=== PATIENT | female | born 1970 | race Caucasian/White ===

== ENCOUNTER 2016-08-03 18:53 | Emergency (ER) | payer BC, OTHER ==
[2016-08-03] MEDS ORDERED: Sodium Chloride 0.9% 1,000 ML IV ONE (20:33)
[2016-08-03] MEDS ORDERED: Ondansetron 4 MG/2 ML SDV IV ONE (20:34)
[2016-08-03] MEDS ORDERED: HYDROmorphone 1 MG/ML Syringe IVPUSH ONE ×2 (20:35→22:41)
--- NOTE | 2016-08-03 20:42 | EDM.PDOC ---
ED HPI GI/ABDOMINAL - General Chief Complaint: Abdominal Pain Stated Complaint: BACK AND FRONTAL PAIN Time Seen by Provider: 08/03/16 20:00 Source of Information: Reports: Patient History Limitations: Reports: No limitations - History of Present Illness INITIAL COMMENTS - FREE TEXT/NARRATIVE: c/o lower abdominal pain stabbing type radiates to back, started 2-3 days ago, seems to be worsening, started more lower and now moving upward, not affected by eating, bowels regular, no urinary complaints. Rates 5/10 tearful. no nausea. Last BM this am, LMP end of june. Tubal. Timing/Duration: Reports: Day(s): Location: generalized Quality: Reports: fullness, stabbing Severity: moderate Worsens with: Reports: lying down Associated Symptoms (-Female): Reports: fever/chills. Denies: constipation, diarrhea, loss of appetite, nausea/vomiting - Related Data Allergies/ADRs: Allergies Allergy/AdvReac Type Severity Reaction Status Date / Time No Known Allergies Allergy Verified 08/03/16 19:44 Home Meds: Home Meds . 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 Denies: decreased appetite HEENT: Reports: No symptoms Respiratory: Reports: No Symptoms Cardiovascular: Reports: Dyspnea on exertion GI/Abdominal: Reports: Abdominal pain, Distension. Denies: Decreased appetite, Flatus, Mucous in stool, Nausea, Stool incontinence : Reports: no symptoms Musculoskeletal: Reports: back pain (lower , abdominal radiates around low back) Skin: Reports: no symptoms Neurological: Reports: No Symptoms, Headache (tonight, hx migraines in past) ED EXAM, GI/ABD - Physical Exam Exam: See Below Exam Limited By: No limitations General Appearance: alert, moderate distress Eyes: bilateral: EOMI Ears: normal external exam, normal TMs Nose: normal inspection Throat/Mouth: Normal inspection, Normal lips, Normal voice Head: atraumatic, normocephalic Neck: normal inspection, non-tender, full range of motion Respiratory/Chest: no respiratory distress, lungs clear, normal breath sounds Cardiovascular: normal peripheral pulses, regular rate, rhythm, no edema GI/Abdominal: normal bowel sounds, soft, hypoactive bowel sounds, tenderness ( generalized) Back Exam: paraspinal tenderness (low lumbar, sacral). No: CVA tenderness (L), CVA tenderness (R) Neurological: alert, oriented, normal cognition Psychiatric: tearful Skin Exam: Warm, Dry, Intact, Normal color Course - Vital Signs Last Recorded V/S: Last Vital Signs Temp 96.8 F 08/03/16 23:22 Pulse 99 08/03/16 23:22 Resp 17 08/03/16 23:22 BP 123/81 08/03/16 23:22 Pulse Ox 100 08/03/16 23:22 - Orders/Labs/Meds Labs: Laboratory Tests 08/03/16 08/03/16 08/03/16 Range/Units 19:40 19:40 20:40 WBC 10.1 H (5.0-10.0) 10^3/uL RBC 3.61 L (4.2-5.4) 10^6/uL Hgb 11.6 L (12.0-16.0) g/dL Hct 33.7 L (37.0-47.0) % MCV 93.4 (80-100) fL MCH 32.1 (27.0-34.0) pg MCHC 34.4 (33.0-35.0) g/dL Plt Count 259 (150-450) 10^3/uL Neut % (Auto) 64.3 (42.2-75.2) % Lymph % (Auto) 23.7 (20.5-50.1) % [place] % (Auto) 11.1 H (2-8) % Eos % (Auto) 0.7 L (1.0-3.0) % Baso % (Auto) 0.2 (0.0-1.0) % Sodium (135-145) mmol/L Potassium (3.6-5.0) mmol/L Chloride (101-111) mmol/L Carbon Dioxide (21.0-31.0) mmol/L Anion Gap BUN (7-18) mg/dL Creatinine (0.6-1.3) mg/dL Est Cr Clr Drug Dosing mL/min Estimated GFR (MDRD) BUN/Creatinine Ratio Glucose (74-105) mg/dL Calcium (8.4-10.2) mg/dl Total Bilirubin (0.2-1.0) mg/dL AST (10-42) IU/L ALT (10-60) IU/L Alkaline Phosphatase (42-121) IU/L C-Reactive Protein (0.0-1.3) mg/dL Total Protein (6.7-8.2) g/dl Albumin (3.2-5.5) g/dl Globulin Albumin/Globulin Ratio Amylase (28-100) U/L Lipase (22-51) U/L Urine Color Yellow (YELLOW) Urine Appearance Cloudy (CLEAR) Urine pH 5.5 (5.0-9.0) Ur Specific [place] 1.020 (1.005-1.030) Urine Protein Negative (NEGATIVE) Urine Glucose (UA) Negative (NEGATIVE) Urine Ketones 15 H (NEGATIVE) Urine Occult Blood Negative (NEGATIVE) Urine Nitrite Negative (NEGATIVE) Urine Bilirubin Negative (NEGATIVE) Urine Urobilinogen 0.2 (0.2-1.0) mg/dL Ur Leukocyte Esterase Small H (NEGATIVE) Urine RBC 0-5 /HPF Urine WBC 20-30 H (0-5/HPF) /HPF Ur Epithelial Cells Many H /HPF Urine Bacteria Many H (0-FEW/HPF) /HPF Urine Mucus Moderate H /LPF Urine HCG, Qual Negative 08/03/16 08/03/16 Range/Units 20:40 20:40 WBC (5.0-10.0) 10^3/uL RBC (4.2-5.4) 10^6/uL Hgb (12.0-16.0) g/dL Hct (37.0-47.0) % MCV (80-100) fL MCH (27.0-34.0) pg MCHC (33.0-35.0) g/dL Plt Count (150-450) 10^3/uL Neut % (Auto) (42.2-75.2) % Lymph % (Auto) (20.5-50.1) % [place] % (Auto) (2-8) % Eos % (Auto) (1.0-3.0) % Baso % (Auto) (0.0-1.0) % Sodium 136 (135-145) mmol/L Potassium 3.5 L (3.6-5.0) mmol/L Chloride 101 (101-111) mmol/L Carbon Dioxide 26.0 (21.0-31.0) mmol/L Anion Gap 12.5 BUN 11 (7-18) mg/dL Creatinine 0.6 (0.6-1.3) mg/dL Est Cr Clr Drug Dosing 85.94 mL/min Estimated GFR (MDRD) > 60 BUN/Creatinine Ratio 18.33 Glucose 95 (74-105) mg/dL Calcium 9.4 (8.4-10.2) mg/dl Total Bilirubin 0.5 (0.2-1.0) mg/dL AST 41 (10-42) IU/L ALT 45 (10-60) IU/L Alkaline Phosphatase 59 (42-121) IU/L C-Reactive Protein 9.5 H (0.0-1.3) mg/dL Total Protein 7.1 (6.7-8.2) g/dl Albumin 3.9 (3.2-5.5) g/dl Globulin 3.2 Albumin/Globulin Ratio 1.22 Amylase 44 (28-100) U/L Lipase 29 (22-51) U/L Urine Color (YELLOW) Urine Appearance (CLEAR) Urine pH (5.0-9.0) Ur Specific [place] (1.005-1.030) Urine Protein (NEGATIVE) Urine Glucose (UA) (NEGATIVE) Urine Ketones (NEGATIVE) Urine Occult Blood (NEGATIVE) Urine Nitrite (NEGATIVE) Urine Bilirubin (NEGATIVE) Urine Urobilinogen (0.2-1.0) mg/dL Ur Leukocyte Esterase (NEGATIVE) Urine RBC /HPF Urine WBC (0-5/HPF) /HPF Ur Epithelial Cells /HPF Urine Bacteria (0-FEW/HPF) /HPF Urine Mucus /LPF Urine HCG, Qual Meds: Medications Discontinued Medications Generic Name Dose Route Start Last Admin Trade Name Freq PRN Reason Stop Dose Admin Hydrocodone Bitart/Acetaminophen Confirm 08/03/16 23:12 08/03/16 23:23 [place] 325-10 Mg Administered 08/03/16 23:13 Not Given Dose 2 tab .ROUTE .STK-MED ONE Ciprofloxacin 500 mg 08/03/16 22:59 08/03/16 23:16 Ciprofloxacin Hcl PO 08/03/16 23:00 500 mg ONETIME ONE Administration Hydromorphone HCl 1 mg 08/03/16 20:35 08/03/16 20:51 Dilaudid IVPUSH 08/03/16 20:36 1 mg ONETIME ONE Administration Hydromorphone HCl 1 mg 08/03/16 22:41 08/03/16 22:54 Dilaudid IVPUSH 08/03/16 22:42 1 mg ONETIME ONE Administration Sodium Chloride 1,000 mls @ 999 mls/hr 08/03/16 20:33 08/03/16 20:47 Normal Saline IV 08/03/16 21:33 999 mls/hr .BOLUS ONE Administration Iopamidol 75 ml 08/03/16 22:03 08/03/16 22:59 Isovue-300 (61%) IVPUSH 08/03/16 22:04 75 ml ONETIME ONE Administration Metoclopramide HCl 10 mg 08/03/16 22:44 08/03/16 22:54 Reglan IVPUSH 08/03/16 22:45 10 mg ONETIME ONE Administration Ondansetron HCl 4 mg 08/03/16 20:34 08/03/16 20:49 Zofran IV 08/03/16 20:35 4 mg ONETIME ONE Administration Ondansetron HCl Confirm 08/03/16 23:13 08/03/16 23:23 Zofran Odt Administered 08/03/16 23:14 Not Given Dose 8 mg .ROUTE .[facility] ONE - Radiology Interpretation Free Text/Narrative:: CT abdomen pelvis: cholelithiasis, gastroenteritis, Left adenexal cyst. Normal appendix - Re-Assessments/Exams Free Text/Narrative Re-Assessment/Exam: 08/04/16 03:49 Pain and nausea improved with medications, tolerating few ice chips. findings discussed with patient and spouse. Departure - Departure Time of Disposition: 23:20 Disposition: Home, Self-Care 01 Clinical Impression: Gastroenteritis Abdominal pain Qualifiers: Abdominal location: generalized Qualified Code(s): R10.84 - Generalized abdominal pain UTI (urinary tract infection) Qualifiers: Urinary tract infection type: acute cystitis Hematuria presence: without hematuria Qualified Code(s): N30.00 - Acute cystitis without hematuria Instructions: Abdominal Pain, Adult, [id number] Forms: ED Department Discharge Additional Instructions: cipro 500mg one twice daily for one week increase fluids low fat diet zofran odt 4mg every 6 hours as needed for nausea hydrocodone 10/325 one every 6 hours as needed for pain #10
[2016-08-03 21:11] LABS: CHLORIDE,CL 101 mmol/L (101-111); SODIUM,NA 136 mmol/L (135-145)
[2016-08-03] MEDS ORDERED: Iopamidol 612 MG/ML 75 ML Bottle IVPUSH ONE (22:03)
[2016-08-03] MEDS ORDERED: Metoclopramide 10 MG/2 ML SDV IVPUSH ONE (22:44)
[2016-08-03] MEDS ORDERED: Ciprofloxacin 500 MG Tab PO ONE (22:59)
[2016-08-03] MEDS ORDERED: Acetaminophen/HYDROcodone 325-10 MG Tab ONE (23:12)
[2016-08-03] MEDS ORDERED: Ondansetron 4 MG Tab.DIS ONE (23:13)
[2016-08-03 23:29] VITALS: BP 123/81
== END 2016-08-03 23:22 | disposition home or self-care (01) ==
LOC: DL.ED 18:53
DX: K52.9 Noninfective gastroenteritis and colitis, unspecified (principal); N30.00 Acute cystitis without hematuria; K80.20 Calculus of gallbladder without cholecystitis without obstruction; N83.8 Other noninflammatory disorders of ovary, fallopian tube and broad ligament; Z98.51 Tubal ligation status
CPT/HCPCS: 36415; 74177; 80053; 81001; 81025; 82150; 83690; 85025; 86140; 96365; 96375; 99284; A9270; J1170; J2405; J2765; J7030; Q9967

== ENCOUNTER 2018-05-29 08:14 | Emergency (ER) | payer BC, OTHER ==
[2018-05-29 08:28] VITALS: BP 142/78
[2018-05-29] MEDS ORDERED: Aspirin 81 MG Tab.Chew PO ONE (08:37)
[2018-05-29] MEDS ORDERED: Sodium Chloride 0.9% 10 ML Syringe FLUSH PRN (08:37)
--- NOTE | 2018-05-29 08:37 | EDM.PDOC ---
ED HPI GENERAL MEDICAL PROBLEM - General Chief Complaint: Chest Pain Stated Complaint: CHEST PAIN [id number] Time Seen by Provider: 05/29/18 08:37 Source of Information: Reports: Patient, RN, RN Notes Reviewed History Limitations: Reports: No Limitations - History of Present Illness INITIAL COMMENTS - FREE TEXT/NARRATIVE: Pt presents to ER from home by POV with c/o onset of left sided chest pain yesterday while doing light house work. The pain has come and gone several times randomly without any particular relation to activity or any other associated cause. She reports some tingling in the left arm as well. Denies shortness of breath, nausea, radiating pain, lightheadedness, palpitations, rapid HR, syncope, edema, or orthopnea. She denies any Hx of heart disease. No family Hx of CAD or [place]. Currently she states the pain is "barely perceivable" and rates it as a 3/10. Onset Date: 05/28/18 Duration: Constant, Intermittent, Waxing/Waning Location: Reports: Chest Quality: Reports: Ache Severity: Mild Improves with: Reports: None Worsens with: Reports: None Associated Symptoms: Reports: No Other Symptoms - Related Data Allergies Allergy/AdvReac Type Severity Reaction Status Date / Time No Known Allergies Allergy Verified 05/29/18 08:21 Home Meds: Home Meds . 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 (See Below) Other CLAIMS ADJUSTER CROP History: Tubal Musculoskeletal History: Reports: None Neurological History: Reports: None Psychiatric History: Reports: None Endocrine/Metabolic History: Reports: None Hematologic History: Reports: None Immunologic History: Reports: None Oncologic (Cancer) History: Reports: None Dermatologic History: Reports: None - Past Surgical History Female Surgical History: Reports: Tubal Ligation Social & Family History - Family History Family Medical History: Noncontributory - Tobacco Use Smoking Status *Q: Never Smoker Second Hand Smoke Exposure: Yes - Caffeine Use Caffeine Use: Reports: Coffee, Soda Other Caffeine Use: Soda only a couple times per week - Recreational Drug Use Recreational Drug Use: No - Living Situation & Occupation Living situation: Reports: , with Family ED ROS GENERAL - Review of Systems Review Of Systems: ROS reveals no pertinent complaints other than HPI. ED EXAM, GENERAL - Physical Exam Exam: See Below Exam Limited By: No Limitations General Appearance: Alert, WD/WN, No Apparent Distress, Anxious Eye Exam: Bilateral Eye: Normal Inspection Nose: Normal Inspection, Normal Mucosa, No Blood Throat/Mouth: Normal Inspection, Normal Lips, Normal Teeth, Normal Gums, Normal Oropharynx, Normal Voice, No Airway Compromise Head: Atraumatic, Normocephalic Neck: Normal Inspection, Supple, Non-Tender, Full Range of Motion Respiratory/Chest: No Respiratory Distress, Lungs Clear, Normal Breath Sounds, No Accessory Muscle Use, Chest Non-Tender Cardiovascular: Normal Peripheral Pulses, Regular Rate, Rhythm, No Edema, No Gallop, No JVD, No Murmur, No Rub GI/Abdominal: Normal Bowel Sounds, Soft, Non-Tender, No Distention Back Exam: Normal Inspection Extremities: Normal Inspection, Normal Range of Motion, Non-Tender, Normal Capillary Refill, No Pedal Edema Neurological: Alert, Oriented, CN II-XII Intact, Normal Cognition, Normal Gait, No Motor/Sensory Deficits Psychiatric: Anxious Skin Exam: Warm, Dry, Intact, Normal Color, No Rash EKG INTERPRETATION EKG Date: 05/29/18 Time: 08:19 Rhythm: NSR Rate (Beats/Min): 98 [place]: Normal P-Wave: Present QRS: Normal ST-T: Normal QT: Normal Comparison: NA - No Prior EKG EKG Interpretation Comments: No acute ischemic changes. Course - Vital Signs Last Recorded V/S: Last Vital Signs Temp 35.9 C 05/29/18 08:15 Pulse 109 H 05/29/18 08:15 Resp 16 05/29/18 08:15 BP 142/78 H 05/29/18 08:15 Pulse Ox 100 05/29/18 08:15 - Orders/Labs/Meds Orders: Active Orders 24 hr Category Date Time Status EKG 12 Lead [EKG Documentation Completion] [RC] STAT Care 05/29/18 08:38 Active Peripheral IV Care [RC] . DIRECTED Care 05/29/18 08:38 Active Sodium Chloride 0.9% [Saline Flush] Med 05/29/18 08:37 Active 10 ml FLUSH ASDIRECTED PRN Peripheral IV Insertion Adult [OM.PC] Stat Oth 05/29/18 08:38 Ordered Medication Orders Sodium Chloride (Saline Flush) 10 ml FLUSH ASDIRECTED PRN PRN Reason: Keep Vein Open Labs: Laboratory Tests 05/29/18 05/29/18 05/29/18 Range/Units 08:46 08:46 08:46 WBC 5.8 (5.0-10.0) 10^3/uL RBC 3.93 L (4.2-5.4) 10^6/uL Hgb 12.5 (12.0-16.0) g/dL Hct 36.0 L (37.0-47.0) % MCV 91.6 (80-100) fL MCH 31.8 (27.0-34.0) pg MCHC 34.7 (33.0-35.0) g/dL Plt Count 274 (150-450) 10^3/uL Neut % (Auto) 57.2 (42.2-75.2) % Lymph % (Auto) 31.5 (20.5-50.1) % [place] % (Auto) 7.8 (2-8) % Eos % (Auto) 3.3 H (1.0-3.0) % Baso % (Auto) 0.2 (0.0-1.0) % D-Dimer, Quantitative < 100 (0-400) ng/mL Sodium 136 (135-145) mmol/L Potassium 4.0 (3.6-5.0) mmol/L Chloride 104 (101-111) mmol/L Carbon Dioxide 21.0 (21.0-31.0) mmol/L Anion Gap 15.0 BUN 12 (7-18) mg/dL Creatinine 0.7 (0.6-1.3) mg/dL Est Cr Clr Drug Dosing 72.13 mL/min Estimated GFR (MDRD) > 60 BUN/Creatinine Ratio 17.14 Glucose 94 (74-105) mg/dL Calcium 9.0 (8.4-10.2) mg/dl Total Bilirubin 0.7 (0.2-1.0) mg/dL AST 31 (10-42) IU/L ALT 28 (10-60) IU/L Alkaline Phosphatase 60 (42-121) IU/L Troponin I < 0.02 (0.00-0.02) ng/ml Total Protein 7.1 (6.7-8.2) g/dl Albumin 3.8 (3.2-5.5) g/dl Globulin 3.3 Albumin/Globulin Ratio 1.15 Lipase 33 (22-51) U/L Urine Color (YELLOW) Urine Appearance (CLEAR) Urine pH (5.0-9.0) Ur Specific [place] (1.005-1.030) Urine Protein (NEGATIVE) Urine Glucose (UA) (NEGATIVE) Urine Ketones (NEGATIVE) Urine Occult Blood (NEGATIVE) Urine Nitrite (NEGATIVE) Urine Bilirubin (NEGATIVE) Urine Urobilinogen (0.2-1.0) mg/dL Ur Leukocyte Esterase (NEGATIVE) Urine RBC /HPF Urine WBC (0-5/HPF) /HPF Ur Epithelial Cells /HPF Urine Bacteria (0-FEW/HPF) /HPF Urine Mucus /LPF Urine HCG, Qual 05/29/18 05/29/18 Range/Units 08:55 08:55 WBC (5.0-10.0) 10^3/uL RBC (4.2-5.4) 10^6/uL Hgb (12.0-16.0) g/dL Hct (37.0-47.0) % MCV (80-100) fL MCH (27.0-34.0) pg MCHC (33.0-35.0) g/dL Plt Count (150-450) 10^3/uL Neut % (Auto) (42.2-75.2) % Lymph % (Auto) (20.5-50.1) % [place] % (Auto) (2-8) % Eos % (Auto) (1.0-3.0) % Baso % (Auto) (0.0-1.0) % D-Dimer, Quantitative (0-400) ng/mL Sodium (135-145) mmol/L Potassium (3.6-5.0) mmol/L Chloride (101-111) mmol/L Carbon Dioxide (21.0-31.0) mmol/L Anion Gap BUN (7-18) mg/dL Creatinine (0.6-1.3) mg/dL Est Cr Clr Drug Dosing mL/min Estimated GFR (MDRD) BUN/Creatinine Ratio Glucose (74-105) mg/dL Calcium (8.4-10.2) mg/dl Total Bilirubin (0.2-1.0) mg/dL AST (10-42) IU/L ALT (10-60) IU/L Alkaline Phosphatase (42-121) IU/L Troponin I (0.00-0.02) ng/ml Total Protein (6.7-8.2) g/dl Albumin (3.2-5.5) g/dl Globulin Albumin/Globulin Ratio Lipase (22-51) U/L Urine Color Yellow (YELLOW) Urine Appearance Clear (CLEAR) Urine pH 5.0 (5.0-9.0) Ur Specific [place] 1.015 (1.005-1.030) Urine Protein Negative (NEGATIVE) Urine Glucose (UA) Negative (NEGATIVE) Urine Ketones Negative (NEGATIVE) Urine Occult Blood Trace-intact H (NEGATIVE) Urine Nitrite Negative (NEGATIVE) Urine Bilirubin Negative (NEGATIVE) Urine Urobilinogen 0.2 (0.2-1.0) mg/dL Ur Leukocyte Esterase Negative (NEGATIVE) Urine RBC 0-5 /HPF Urine WBC Not seen (0-5/HPF) /HPF Ur Epithelial Cells Moderate H /HPF Urine Bacteria Moderate H (0-FEW/HPF) /HPF Urine Mucus Not seen /LPF Urine HCG, Qual Negative Meds: Medications Generic Name Dose Route Start Last Admin Trade Name Freq PRN Reason Stop Dose Admin Sodium Chloride 10 ml 05/29/18 08:37 Saline Flush FLUSH ASDIRECTED PRN Keep Vein Open Discontinued Medications Generic Name Dose Route Start Last Admin Trade Name Freq PRN Reason Stop Dose Admin Al Hydroxide/Mg Hydroxide 30 ml 05/29/18 09:28 05/29/18 09:36 Gi Cocktail PO 05/29/18 09:29 30 ml ONETIME ONE Administration Aspirin 324 mg 05/29/18 08:37 05/29/18 08:41 Aspirin PO 05/29/18 08:38 324 mg ONETIME ONE Administration Famotidine 20 mg 05/29/18 09:29 Pepcid IVPUSH 05/29/18 09:30 ONETIME ONE Famotidine 20 mg 05/29/18 09:31 05/29/18 09:36 Pepcid PO 05/29/18 09:32 20 mg ONETIME ONE Administration Famotidine Confirm 05/29/18 09:33 Pepcid Administered 05/29/18 09:34 Dose 20 mg .ROUTE .STK-MED ONE - Radiology Interpretation Free Text/Narrative:: [facility] Final Radiology Report Call: [phone] assistance Online chat: [email or web address] Name: ZORAN BAXTER Age: 47Years F Date: 05/29/2018 SSN: -- : 1970 Study: XR CHEST 1 VIEW Requesting Physician: WOLFGANG BARTHOLOMEW Images: 1 Addl Studies: Provided Clinical History: Contrast: Contrast Medium: Contrast Amount: Contrast Method: CONFIDENTIALITY STATEMENT This report is intended only for use by the referring physician, and only in accordance with law. If you received this in error, call [phone]. Page 1 of 1 EXAM: XR Chest, 1 View EXAM DATE/TIME: 05/29/2018 8:49 AM CLINICAL HISTORY: 47 years old, female; Signs and symptoms; Other: Chest pain TECHNIQUE: XR of the chest, 1 view. COMPARISON: No relevant prior studies available. FINDINGS: Lungs: Unremarkable. No consolidation. Pleural space: Unremarkable. No pleural effusion. No pneumothorax. Heart/Mediastinum: Unremarkable. No cardiomegaly. Bones/joints: Unremarkable. IMPRESSION: No acute findings. Thank you for allowing us to participate in the care of your patient. Dictated and Authenticated by: Marquis Scott MD 05/29/2018 9:23 AM Central Time ([place] & [place]) Departure - Departure Time of Disposition: 09:58 Disposition: Home, Self-Care 01 Condition: Good Clinical Impression: Atypical chest pain Gastroesophageal reflux disease Qualifiers: Esophagitis presence: with esophagitis Qualified Code(s): K21.0 - Gastro- esophageal reflux disease with esophagitis Instructions: Nonspecific Chest Pain, [id number], Esophagitis, Esophageal Spasm Forms: ED Department Discharge Additional Instructions: Rx: Omeprazole 20mg Follow up this with at [facility]. Call [phone] to schedule an appointment. Discuss referrals for cardiac stress testing, and for an upper endoscopy with a GI specialist. - My Orders Last 24 Hours: My Active Orders 05/29/18 08:37 Sodium Chloride 0.9% [Saline Flush] 10 ml FLUSH ASDIRECTED PRN 05/29/18 08:38 EKG 12 Lead [EKG Documentation Completion] [RC] STAT Peripheral IV Care [RC] . DIRECTED Peripheral IV Insertion Adult [OM.PC] Stat - Assessment/Plan Last 24 Hours: My Active Orders 05/29/18 08:37 Sodium Chloride 0.9% [Saline Flush] 10 ml FLUSH ASDIRECTED PRN 05/29/18 08:38 EKG 12 Lead [EKG Documentation Completion] [RC] STAT Peripheral IV Care [RC] . DIRECTED Peripheral IV Insertion Adult [OM.PC] Stat
[2018-05-29 09:13] LABS: CHLORIDE,CL 104 mmol/L (101-111); SODIUM,NA 136 mmol/L (135-145)
[2018-05-29] MEDS ORDERED: GI Cocktail Oral Solution 30 ML PO ONE (09:28)
[2018-05-29] MEDS ORDERED: Famotidine 20 MG/2 ML SDV IVPUSH ONE (09:29)
[2018-05-29] MEDS ORDERED: Famotidine 20 MG Tab PO ONE (09:31)
[2018-05-29] MEDS ORDERED: Famotidine 20 MG Tab ONE (09:33)
== END 2018-05-29 10:30 | disposition home or self-care (01) ==
LOC: DL.ED 08:14
DX: R07.89 Other chest pain (principal)
CPT/HCPCS: 36415; 71045; 80053; 81001; 81025; 83690; 84484; 85025; 85379; 93005; 99285; A9270

== ENCOUNTER 2018-06-08 08:36 | Day surgery (SDC) | payer BC ==
[~2018-06-08 08:36] MED LIST: Benzocaine 20% Topical Spray UD MUCMEM ONE; Midazolam 1 MG/ML 2 ML SDV ONE; fentaNYL 100 MCG/2 ML SDV ONE
[2018-06-08] MEDS ORDERED: Midazolam 1 MG/ML 2 ML SDV IV ONE ×9 (08:37→09:41)
[2018-06-08] MEDS ORDERED: Dextrose 5%-0.45% NaCl 1,000 ML IV SCH (09:00)
[2018-06-08] MEDS ORDERED: Midazolam 1 MG/ML 2 ML SDV ONE (09:54)
--- NOTE | 2018-06-08 11:33 | OR ---
DATE: 06/08/2018 PREOPERATIVE DIAGNOSIS: Gastroesophageal reflux disease. POSTOPERATIVE DIAGNOSIS: Gastroesophageal reflux disease. PROCEDURES: Esophagogastroduodenoscopy with biopsy of gastric antrum for H. pylori evaluation and biopsy of EG junction for possible Mendez esophagitis. ANESTHESIA: Conscious sedation with IV Versed. SPECIMENS: Antral biopsy and EGD biopsy. OPERATIVE FINDINGS: 1. Small hiatal hernia. 2. Evidence of some distal esophagitis and minimal gastritis. RECOMMENDATION: Depending on pathology, if Mendez's is shown, she will need followup EGDs, possibly about every 3 years. If H. pylori is present, will need treatment for that. INDICATION FOR PROCEDURE: This 47-year-old female has GERD symptoms. She came to the emergency room last week with episodes of chest pain, which Cardiology had ruled out heart in origin. She has not had any prior evaluation for her GERD except for supposition. PROCEDURE IN DETAIL: After adequate preparation, a gastroscope was inserted into the esophagus. This was passed down to the distal esophagus. She does show a small 1 cm hiatal hernia and some evidence of reflux esophagitis in what appears to be Mendez's areas. Otherwise, there is no evidence of erosive esophagitis, strictures, or masses. The scope was advanced into the stomach. Both forward and retroflexed views were done. The pylorus had some streaks along the antral area. Biopsy for H. pylori was done. The scope was advanced through the pylorus, and the first and second parts of the duodenum are also normal. Air was suctioned from the stomach, and the scope was removed. [facility] /[id number] cc: Pushpa Osborne PA-C
[2018-06-08 13:25] VITALS: BP 112/69
== END 2018-06-08 11:36 | disposition home or self-care (01) ==
LOC: DL.ENDO 08:36
PROVIDERS: ATTEND Surgery
DX: K21.9 Gastro-esophageal reflux disease without esophagitis (principal); K20.0 Eosinophilic esophagitis; K44.9 Diaphragmatic hernia without obstruction or gangrene; Z79.899 Other long term (current) drug therapy
CPT/HCPCS: 87077; J2250; J7042